=== PATIENT | female | born 1985 | race Caucasian/White ===

== ENCOUNTER 2016-12-11 09:52 | Inpatient (IN) | payer OTHER, SELFPAY ==
[~2016-12-11] VITALS: Ht 157.5 cm; Wt 64.0 kg
[2016-12-11] VITALS (11 sets, daily range): BP systolic 119–159; BP diastolic 73–98
[2016-12-11] MEDS: PRENATAL VITAMINS CHEWABLE TABLET PO SCH (09:00)
[~2016-12-11 09:52] MED LIST: *ANUSOI TOP; ACET50TA PO; COLA100C2 OR; IBUP600T OR; IBUP60TA PO; MILKSUS OR; NO HOME MEDS; PRENTAB8 PO; TYLE500T53 OR
[2016-12-11] MEDS ORDERED: OXYTOCIN INJ 10 UNITS/ML VIAL (J2590) IM ONE (11:15)
[2016-12-11 11:18] LABS: CORD GAS O2 SAT V 68.7 %; CORD GAS PCO2 V 26.7 mmHg; CORD GAS PH V 7.471 UNITS; CORD GAS PO2 V 25.5 mmHg; CORD GAS SBC V 21.3 MEQ/L; CORD GAS TCO2 V 19.9 MEQ/L
[2016-12-11 11:21] LABS: CORD GAS ABE A -2.7; CORD GAS HCO3 A 21.2 MEQ/L; CORD GAS O2 SAT A 40.7 %; CORD GAS PCO2 A 34.3 mmHg; CORD GAS PH A 7.409 UNITS; CORD GAS PO2 A 16.8 mmHg; CORD GAS TCO2 A 22.3 MEQ/L
[2016-12-11] MEDS ORDERED: OXYTOCIN DRIP 30 UNITS in APPROPRIATE DILUENT 1 EA IV SCH (11:50)
--- NOTE | 2016-12-11 11:52 | HPE ---
DATE OF ADMISSION: 12/11/2016 Anne is a 31-year-old 6, para 4-0-1-4 with unknown gestational age at this time. She has received no care during this . She presents to labor and delivery with report of contractions that started at approximately 0600 hours. She denies vaginal bleeding, leakage of fluid, fetus has been active and she claims that she found out she was in September and has had no care and was told that she should be about 20 weeks gestation at this time. History is significant for know illicit drug use with last . OBSTETRICAL HISTORY: Spontaneous times one. October 2004 at 41 weeks gestation she had a spontaneous vaginal delivery for a 7 pound 15 ounce female. September 2007 at 40 weeks gestation she had spontaneous vaginal delivery for an 8 pound 10 ounce female. January 2012 at 41 weeks she had a spontaneous vaginal delivery for 8 pound 12 ounce male. December of 2015 at 39 weeks she had spontaneous vaginal delivery for a 6 pound 13 ounce female. OBSTETRICAL LABS: None available at this time. PAST MEDICAL HISTORY: Reported as negative. SURGERIES: None. FAMILY HISTORY: Breast cancer. SOCIAL HISTORY: The patient is single. She reports that the father of baby is in her life. She reports smoking one to two cigarettes a day. Denies alcohol use. Reports drug use with recent use in July and in September of this year, cocaine and marijuana. Denies any history of any sexually transmitted infections and denies history of abuse. ALLERGIES: No known drug allergies. CURRENT MEDICATIONS: Include vitamins. The patient in her last reportedly used illicit drugs and does not have custody of that child. She does report having custody of her other three children. OBJECTIVE: Blood pressure 119/75, pulse 72, no temperature recorded. Her pupils are dilated. She is writhing around in the bed and appears significantly uncomfortable. Her abdomen appears gravid, much greater than 20 weeks gestation. A fundal height measurement was 41 cm. Bedside ultrasound was performed to confirm cephalic presentation. heart rate minimal recording due to the patient's inability to cope with her contractions. heart rate is 130 with moderate variability. There is a one noted acceleration and no decelerations observed. She appears to be marc about every 3 minutes. The abdomen is gravid, cephalic presentation. Estimated weight approximately 7 pounds. Sterile vaginal exam fully dilated, bulging bag of water. ASSESSMENT: Intrauterine of unknown gestational age. Fundal height 41 cm, appears to be a term , second stage. PLAN: Admit the patient to labor delivery. Saline lock if able to obtain. Anticipate a spontaneous vaginal delivery. There will be a patient and family services (PFS) consult made. NUBIA
[2016-12-11] MEDS ORDERED: OXYTOCIN 30 UNITS IN 0.9% NaCl 500ML IV BAG (J2590) As Ordered ONE (11:53)
[2016-12-11] MEDS ORDERED: ANUSOL HC CREAM 30GM TOP PRN (12:00)
[2016-12-11] MEDS ORDERED: DIBUCAINE 1% OINTMENT 30GM TOP PRN (12:00)
[2016-12-11] MEDS ORDERED: DOCUSATE SODIUM 100 MG CAP PO PRN (12:00)
[2016-12-11] MEDS ORDERED: MEASLES,MUMPS,RUBELLA VACCINE INJ (MMR-II) (90707) SC SCH (12:00)
[2016-12-11] MEDS ORDERED: METHYLERGONOVINE MALEATE 0.2 MG TAB PO PRN (12:00)
[2016-12-11] MEDS ORDERED: RHOGAM 300 MCG (1500 IU) INJ (J2790) IM SCH (12:00)
[2016-12-11 12:02] LABS: BASO # 0.1 K/mm3 (0.0-0.2); BASO % 0.8 % (0.0-1.0); EOS # 0.1 K/mm3 (0.0-0.50); EOS % 0.7 % (0.0-3.0); LARGE UNSTAINED CELL # 0.1 K/mm3 (0.0-0.4); LYMPH # 1.2 K/mm3 (1.5-4.5); LYMPH % 8.8 % (24.0-44.0); MEAN CORPUSCULAR HEMOGLOBIN 29.5 pg (27.0-33.0); MEAN CORPUSCULAR VOLUME 89.5 fl (80.0-96.0); MONO # 0.6 K/mm3 (0.0-0.8); MONO % 4.2 % (0.0-5.0); NEUTROPHILS # 11.2 K/mm3 (1.8-7.7); NEUTROPHILS % 84.6 % (36.0-66.0); PLATELET COUNT, AUTOMATED 273 k/mm3 (150-450); WHITE BLOOD COUNT 13.2 K/mm3 (4.0-10.0)
[2016-12-11] MEDS: IBUPROFEN 800 MG TAB PO PRN ×2 (12:17→20:05)
[2016-12-11 12:21] LABS: ALT/SGPT 9 U/L (12-78); AST/SGOT 11 U/L (15-37); BILIRUBIN,TOTAL 0.2 MG/DL (0.2-1.0); CREATININE FOR GFR 0.56 MG/DL (0.55-1.02); GLOMERULAR FILTRATION RATE > 60.0 (>60); URIC ACID 4.3 MG/DL (2.6-6.0)
--- NOTE | 2016-12-11 12:38 | DN ---
DATE OF DELIVERY: 12/11/2016 Anne is a 31-year-old, 6, para 5-0-1-5 now, who was admitted to labor and delivery in second stage labor. She progressed to full dilation at 10:24 a.m. She had a spontaneous rupture of membranes for thick meconium-stained fluid at 10:26. She pushed to a normal spontaneous vaginal delivery of a live male infant in occipitoanterior (OA) position, restitution to left occipitotransverse (LOT) position at 10:29. There was a cord noted around the left thigh and abdomen of the fetus that was reduced manually after delivery. The 's mouth and nares were bulb suctioned. He was crying and vigorous. Cord was clamped times two and cut by myself. The was taken to the warmer for evaluation by nursing staff and Dr. Klein did enter the room very quickly after delivery for evaluation. A spontaneous expulsion of a placenta intact with three-vessel cord by Aranda mechanism was at 10:40. Noted to be thick meconium stained on the membranes. The trailing membranes were teased out with a ring forceps. Uterine hemostasis achieved with intramuscular (IM) Pitocin 10 units and uterine fundal massage. Estimated blood loss was 300 mL. Perineum and vagina were inspected and noted to be intact. The male weighed 3200 grams, 7 pounds 4 ounces, scores 9 and 9. Mother plans to bottle feed. She is going to name her son, Mauricio. At the close of delivery, lap counts, needle counts, and instrument counts were correct and verified. [facility]
[2016-12-11] MEDS ORDERED: AMPICILLIN SOD/SULBACTAM SOD 3 GM in D5W MINI-BAG PLUS 100 ML IV ONE (13:15)
[2016-12-12] MEDS: IBUPROFEN 800 MG TAB PO PRN ×3 (03:06→20:57)
[2016-12-12 06:09] VITALS: BP 130/80
[2016-12-12] MEDS: PRENATAL VITAMINS CHEWABLE TABLET PO SCH (09:53)
[2016-12-12 18:00] VITALS: BP 126/68
[2016-12-12 18:58] LABS: CONTROL LINE INT CTR LINE PRESENT; HIV SCRN NEGATIVE (NEGATIVE); HIV SCRN1 NEGATIVE (NEGATIVE)
[2016-12-13] MEDS ORDERED: medroxyPROGESTERone ACET IM SUSP 150 MG/ML VIAL (J1050) IM SCH (05:45)
[2016-12-13 06:10] VITALS: BP 127/84
[2016-12-13] MEDS: PRENATAL VITAMINS CHEWABLE TABLET PO SCH (07:41)
[2016-12-13 18:25] VITALS: BP 147/96
[2016-12-13] MEDS: IBUPROFEN 800 MG TAB PO PRN (18:32)
[2016-12-13] MEDS ORDERED: IBUP-1114 PO (18:44)
[2016-12-13] MEDS ORDERED: PRENTAB9 PO (18:44)
[2016-12-18 19:06] LABS: GC Benzoylecgon 2520 ng/mL (Cutoff=150); GC Carboxy THC 49 ng/mL (Cutoff=10)
== END 2016-12-13 18:54 | disposition home or self-care (01) | DRG 541 ==
LOC: M LDO 09:52 → M LDI 10:26 → M OBS 14:33
PROVIDERS: ADMIT Advanced Practice Midwife; ATTEND Advanced Practice Midwife
PROC: 10E0XZZ Delivery of Products of Conception, External Approach (ICD-10-PCS; principal; 2016-12-11)
PROC: 10D17ZZ Extraction of Products of Conception, Retained, Via Natural or Artificial Opening (ICD-10-PCS; 2016-12-11)
DX: O99.334 Smoking (tobacco) complicating childbirth (principal); F17.210 Nicotine dependence, cigarettes, uncomplicated; Z3A.00 Weeks of gestation of pregnancy not specified; O77.0 Labor and delivery complicated by meconium in amniotic fluid; O69.82X0 Labor and delivery complicated by other cord entanglement, without compression, not applicable or unspecified; O73.1 Retained portions of placenta and membranes, without hemorrhage; Z37.0 Single live birth

== ENCOUNTER → 2016-12-21 | Outpatient (CLI) | payer SELFPAY ==
[~2016-12-21] MED LIST changes: +IBUP-1114 PO; +PRENTAB9 PO
== END ==
LOC: M OUTALCOH 07:47
PROVIDERS: ATTEND Psychiatry & Neurology Psychiatry
DX: F12.20 Cannabis dependence, uncomplicated (principal); F14.10 Cocaine abuse, uncomplicated; F10.10 Alcohol abuse, uncomplicated

== ENCOUNTER 2016-12-28 14:22 | Outpatient (RCR) | payer SELFPAY | END 2017-01-03 | LOC: M OUTALCOH 14:22 | PROVIDERS: ATTEND Psychiatry & Neurology Psychiatry | DX: F12.20 Cannabis dependence, uncomplicated (principal); F14.10 Cocaine abuse, uncomplicated; F10.10 Alcohol abuse, uncomplicated; F17.200 Nicotine dependence, unspecified, uncomplicated ==

== ENCOUNTER → 2017-02-03 | Outpatient (RCR) | payer SELFPAY | LOC: M OUTALCOH 01-04 16:00 | PROVIDERS: ATTEND Psychiatry & Neurology Psychiatry | DX: F12.20 Cannabis dependence, uncomplicated (principal); F14.10 Cocaine abuse, uncomplicated; F10.10 Alcohol abuse, uncomplicated; F17.200 Nicotine dependence, unspecified, uncomplicated ==

== ENCOUNTER 2017-03-01 16:00 | Outpatient (RCR) | payer SELFPAY | END 2017-03-05 | LOC: M OUTALCOH 16:00 | PROVIDERS: ATTEND Psychiatry & Neurology Psychiatry | DX: F10.10 Alcohol abuse, uncomplicated (principal); F12.20 Cannabis dependence, uncomplicated; F14.10 Cocaine abuse, uncomplicated; F17.200 Nicotine dependence, unspecified, uncomplicated ==

== ENCOUNTER 2017-10-23 13:16 | Inpatient (IN) | payer SELFPAY, MEDICAID, OTHER ==
[2017-10-23 14:18] LABS: AMORPHOUS SEDIMENT RFX SMALL (NEGATIVE); KETONE, URINE AUTO RFX NEGATIVE (NEGATIVE); MUCUS, URINE RFX SMALL (NEGATIVE); RBC, URINE AUTO RFX 11 /HPF (0-3); SPECIFIC GRAVITY UR AUTO RFX 1.021 (1.002-1.035); SQUAM EPITHELIAL CELL UR AURFX 0 /HPF (0-6); TRANSITIONAL EPITHELIAL AU RFX 1 /HPF
[2017-10-23 14:19] LABS: LEUKOCYTE ESTERASE UR AUTO RFX 3+ (NEGATIVE); NITRITE, URINE AUTO RFX POSITIVE (NEGATIVE); WBC, URINE AUTO RFX TNTC /HPF (0-3)
[2017-10-23 15:12] LABS: CONTROL LINE UCG INT CTR LINE PRESENT; URINE PREG TEST NEGATIVE (NEGATIVE)
[2017-10-23 15:37] LABS: BASO # 0.1 10^3/uL (0.0-0.2); BASO % 0.4 % (0.0-1.0); HEMOGLOBIN 12.8 g/dl (12.0-15.5); IMMATURE GRANULOCYTE % 0.7 % (0-3.0); LYMPH % 3.9 % (24.0-44.0); MEAN CORPUSCULAR HEMOGLOBIN 28.6 pg (27.0-33.0); MEAN CORPUSCULAR VOLUME 89.3 fl (80.0-96.0); MONO # 1.8 10^3/uL (0.0-0.8); MONO % 7.2 % (0.0-5.0); NEUTROPHILS # 21.5 10^3/uL (1.8-7.7); NEUTROPHILS % 87.8 % (36.0-66.0); PLATELET COUNT, AUTOMATED 306 10^3/uL (150-450); RED BLOOD COUNT 4.48 10^6/uL (4.00-5.40); RED CELL DISTRIBUTION WIDTH 15.1 % (11.5-14.5); WHITE BLOOD COUNT 24.5 10^3/uL (4.0-10.0)
[2017-10-23] MEDS ORDERED: ISOVUE-370 76% 100ML VIAL (Q9967) As Ordered (15:50)
[2017-10-23 15:53] LABS: ALBUMIN 3.7 GM/DL (3.2-5.2); ALBUMIN/GLOBULIN RATIO 0.76 (1.00-1.93); ALKALINE PHOSPHATASE 119 U/L (45-117); ALT/SGPT 118 U/L (12-78); ANION GAP 8 MEQ/L (8-16); AST/SGOT 79 U/L (7-37); BILIRUBIN,DIRECT 0.2 MG/DL (0.0-0.2); BILIRUBIN,TOTAL 0.6 MG/DL (0.2-1.0); BLOOD UREA NITROGEN 15 MG/DL (7-18); CALCIUM LEVEL 9.4 MG/DL (8.5-10.1); CARBON DIOXIDE LEVEL 27 MEQ/L (21-32); CHLORIDE LEVEL 103 MEQ/L (98-107); CREATININE FOR GFR 0.82 MG/DL (0.55-1.30); GLOMERULAR FILTRATION RATE > 60.0 (>60); GLUCOSE, FASTING 90 MG/DL (70-100); LIPASE 77 U/L (73-393); POTASSIUM SERUM 4.2 MEQ/L (3.5-5.1); SODIUM LEVEL 138 MEQ/L (136-145); TOTAL PROTEIN 8.6 GM/DL (6.4-8.2)
[2017-10-23] MEDS: NS 1,000 ML IV ×2 (15:56→20:45)
[2017-10-23] MEDS: ONDANSETRON 4MG/2ML VIAL (J2405) IV (15:57)
[2017-10-23] MEDS: MORPHINE 4 MG/ML 1ML VIAL/SYRINGE (J2270) IV ×2 (15:57→20:44)
[2017-10-23 16:11] LABS: LACTIC ACID SEPSIS PROTOCOL 3.9 MMOL/L (0.4-2.0)
[2017-10-23] MEDS: cefTRIAXone SOD 1 GM in D5W MINI-BAG PLUS 50 ML IV (17:22)
[2017-10-23] MEDS: NS 500 ML in APPROPRIATE DILUENT 1 EA IV (17:22)
[2017-10-23] MEDS: ACETAMINOPHEN TAB 650MG DOSE (2X325MG) PO ×2 (17:45→18:42)
[2017-10-23] MEDS ORDERED: ONDANSETRON 4MG/2ML VIAL (J2405) IV (18:30)
[2017-10-23] MEDS ORDERED: ACETAMINOPHEN TAB 650MG DOSE (2X325MG) PO (18:30)
[2017-10-23] MEDS: ENOXAPARIN 30 MG/0.3 ML SYR (J1650) SC (20:44)
[2017-10-23] MEDS: PERCOCET 5MG/325MG TAB PO (23:49)
[2017-10-24] MEDS: NS 1,000 ML IV (06:04)
[2017-10-24] MEDS: MORPHINE 4 MG/ML 1ML VIAL/SYRINGE (J2270) IV (06:05)
[2017-10-24 06:28] LABS: HEMATOCRIT 30.2 % (36.0-47.0); HEMOGLOBIN 9.8 g/dl (12.0-15.5); MEAN CORPUSCULAR HEMOGLOBIN 28.9 pg (27.0-33.0); MEAN CORPUSCULAR HGB CONC 32.5 g/dl (32.0-36.5); MEAN CORPUSCULAR VOLUME 89.1 fl (80.0-96.0); PLATELET COUNT, AUTOMATED 243 10^3/uL (150-450); RED BLOOD COUNT 3.39 10^6/uL (4.00-5.40); RED CELL DISTRIBUTION WIDTH 15.2 % (11.5-14.5); WHITE BLOOD COUNT 16.7 10^3/uL (4.0-10.0)
[2017-10-24 06:51] LABS: ALBUMIN 2.6 GM/DL (3.2-5.2); ALKALINE PHOSPHATASE 117 U/L (45-117); ALT/SGPT 73 U/L (12-78); ANION GAP 5 MEQ/L (8-16); AST/SGOT 45 U/L (7-37); BILIRUBIN,TOTAL 0.3 MG/DL (0.2-1.0); BLOOD UREA NITROGEN 11 MG/DL (7-18); CARBON DIOXIDE LEVEL 26 MEQ/L (21-32); CHLORIDE LEVEL 108 MEQ/L (98-107); CREATININE FOR GFR 0.71 MG/DL (0.55-1.30); GLOMERULAR FILTRATION RATE > 60.0 (>60); GLUCOSE, FASTING 83 MG/DL (70-100); MAGNESIUM LEVEL 2.3 MG/DL (1.8-2.4); POTASSIUM SERUM 4.3 MEQ/L (3.5-5.1); SODIUM LEVEL 139 MEQ/L (136-145)
[2017-10-24 07:08] LABS: ALBUMIN/GLOBULIN RATIO 0.68 (1.00-1.93)
[2017-10-24 07:17] LABS: CALCIUM LEVEL 8.1 MG/DL (8.5-10.1)
[2017-10-24 07:18] LABS: TOTAL PROTEIN 6.4 GM/DL (6.4-8.2)
[2017-10-24] MEDS: PERCOCET 5MG/325MG TAB PO ×2 (07:41→20:45)
[2017-10-24 09:57] LABS: HIV 1&2 SCREEN CENTAUR NEGATIVE (NEGATIVE)
[2017-10-24 10:09] LABS: HEPATITIS C VIRUS ABY INDEX > 11.0 INDEX (<0.8)
[2017-10-24] MEDS: KETOROLAC 30 MG/ML VIAL (J1885) IV ×3 (10:32→22:37)
[2017-10-24] MEDS: traMADol 50 MG TAB PO ×2 (10:33→18:52)
[2017-10-24] MEDS: LIDOCAINE 5% OINT 30 GM TOP ×2 (11:45→20:45)
[2017-10-24] MEDS: cefTRIAXone SOD 1 GM in D5W MINI-BAG PLUS 50 ML IV (16:52)
[2017-10-24] MEDS: ENOXAPARIN 30 MG/0.3 ML SYR (J1650) SC (20:45)
[2017-10-25] MEDS: KETOROLAC 30 MG/ML VIAL (J1885) IV ×4 (05:48→22:20)
[2017-10-25 06:46] LABS: HEMOGLOBIN 9.7 g/dl (12.0-15.5); MEAN CORPUSCULAR HEMOGLOBIN 28.5 pg (27.0-33.0); MEAN CORPUSCULAR HGB CONC 31.3 g/dl (32.0-36.5); MEAN CORPUSCULAR VOLUME 91.2 fl (80.0-96.0); PLATELET COUNT, AUTOMATED 209 10^3/uL (150-450); RED CELL DISTRIBUTION WIDTH 15.1 % (11.5-14.5); WHITE BLOOD COUNT 9.3 10^3/uL (4.0-10.0)
[2017-10-25 07:02] LABS: ALBUMIN 2.4 GM/DL (3.2-5.2); ALBUMIN/GLOBULIN RATIO 0.73 (1.00-1.93); ALKALINE PHOSPHATASE 131 U/L (45-117); ALT/SGPT 63 U/L (12-78); ANION GAP 6 MEQ/L (8-16); AST/SGOT 47 U/L (7-37); BILIRUBIN,TOTAL 0.2 MG/DL (0.2-1.0); BLOOD UREA NITROGEN 16 MG/DL (7-18); CALCIUM LEVEL 7.8 MG/DL (8.5-10.1); CARBON DIOXIDE LEVEL 26 MEQ/L (21-32); CHLORIDE LEVEL 111 MEQ/L (98-107); CREATININE FOR GFR 0.67 MG/DL (0.55-1.30); GLOMERULAR FILTRATION RATE > 60.0 (>60); GLUCOSE, FASTING 81 MG/DL (70-100); MAGNESIUM LEVEL 2.2 MG/DL (1.8-2.4); POTASSIUM SERUM 4.6 MEQ/L (3.5-5.1); SODIUM LEVEL 143 MEQ/L (136-145); TOTAL PROTEIN 5.7 GM/DL (6.4-8.2)
[2017-10-25] MEDS: LIDOCAINE 5% OINT 30 GM TOP ×2 (10:52→21:11)
[2017-10-25] MEDS: MOM 30ML SUSPENSION UDC PO (13:42)
[2017-10-25] MEDS: cefTRIAXone SOD 1 GM in D5W MINI-BAG PLUS 50 ML IV (17:47)
[2017-10-25] MEDS: ENOXAPARIN 30 MG/0.3 ML SYR (J1650) SC (21:12)
[2017-10-26 00:06] LABS: HBVCOREDIFF1 Negative (Negative); HBVCOREDIFF2 Negative (Negative); HEPATITIS BE ANTIBODY Negative (Negative); HEPATITIS BE ANTIGEN Negative (Negative)
[2017-10-26] MEDS: KETOROLAC 30 MG/ML VIAL (J1885) IV (05:44)
[2017-10-26 06:42] LABS: HEMATOCRIT 31.4 % (36.0-47.0); MEAN CORPUSCULAR HEMOGLOBIN 28.4 pg (27.0-33.0); MEAN CORPUSCULAR HGB CONC 31.8 g/dl (32.0-36.5); MEAN CORPUSCULAR VOLUME 89.2 fl (80.0-96.0); PLATELET COUNT, AUTOMATED 280 10^3/uL (150-450); RED BLOOD COUNT 3.52 10^6/uL (4.00-5.40); WHITE BLOOD COUNT 6.4 10^3/uL (4.0-10.0)
[2017-10-26 07:18] LABS: ALBUMIN 2.4 GM/DL (3.2-5.2); ALKALINE PHOSPHATASE 132 U/L (45-117); ALT/SGPT 56 U/L (12-78); ANION GAP 5 MEQ/L (8-16); AST/SGOT 44 U/L (7-37); BILIRUBIN,TOTAL 0.2 MG/DL (0.2-1.0); BLOOD UREA NITROGEN 14 MG/DL (7-18); CALCIUM LEVEL 8.3 MG/DL (8.5-10.1); CARBON DIOXIDE LEVEL 29 MEQ/L (21-32); CHLORIDE LEVEL 110 MEQ/L (98-107); CREATININE FOR GFR 0.57 MG/DL (0.55-1.30); GLOMERULAR FILTRATION RATE > 60.0 (>60); GLUCOSE, FASTING 81 MG/DL (70-100); MAGNESIUM LEVEL 2.2 MG/DL (1.8-2.4); POTASSIUM SERUM 4.2 MEQ/L (3.5-5.1); SODIUM LEVEL 144 MEQ/L (136-145); TOTAL PROTEIN 6.4 GM/DL (6.4-8.2)
[2017-10-26] MEDS: LIDOCAINE 5% OINT 30 GM TOP (09:20)
[2017-10-26] MEDS: cefTRIAXone SOD 1 GM in D5W MINI-BAG PLUS 50 ML IV (09:20)
[2017-10-27 00:10] LABS: HBV HBV DNA not detected IU/mL (.)
[2017-10-28 00:09] LABS: HCV RNA NAA QUALITATIVE Positive (Negative)
== END 2017-10-26 10:45 | disposition home or self-care (01) | DRG 720 ==
LOC: M ED 13:16 → M ED INP 18:28 → M MS5PR 20:32
DX: A41.9 Sepsis, unspecified organism (principal); E87.2 Acidosis; N10 Acute pyelonephritis; B19.20 Unspecified viral hepatitis C without hepatic coma; B96.20 Unspecified Escherichia coli [E. coli] as the cause of diseases classified elsewhere; F41.9 Anxiety disorder, unspecified; F19.90 Other psychoactive substance use, unspecified, uncomplicated; R94.5 Abnormal results of liver function studies; F17.200 Nicotine dependence, unspecified, uncomplicated; F32.9 Major depressive disorder, single episode, unspecified; Z79.899 Other long term (current) drug therapy

== ENCOUNTER → 2021-11-18 | Outpatient (CLI) | payer OTHER, SELFPAY ==
[~2021-11-18] MED LIST changes: -ACET50TA PO; +IBUP600T42 PO; -IBUP60TA PO; +LEVO750T13 PO; +MAPA500T2 PO
== END ==
LOC: M RAD 12:44
PROVIDERS: ATTEND Physician Assistant Medical
DX: Z32.01 Encounter for pregnancy test, result positive (principal)

== ENCOUNTER 2022-03-05 11:21 | Inpatient (IN) | payer SELFPAY ==
[2022-03-05] VITALS (26 sets, daily range): BP systolic 104–144; BP diastolic 57–95
[~2022-03-05] VITALS: Ht 157.5 cm; Wt 61.4 kg
[~2022-03-05 11:21] MED LIST changes: +LEVO1TAB40 PO; -LEVO750T13 PO
[2022-03-05] MEDS ORDERED: AMPICILLIN SOD 2 GM in D5W MINI-BAG PLUS 100 ML IV STA (11:28)
[2022-03-05] MEDS ORDERED: LACTATED RINGER'S 1000 ML IV STA (11:28)
[2022-03-05] MEDS ORDERED: LR 1,000 ML IV SCH (11:30)
[2022-03-05] MEDS ORDERED: PREN1CHW6 PO (11:40)
[2022-03-05] MEDS ORDERED: METH10CO PO (11:42)
[2022-03-05] MEDS ORDERED: HOME MED LIST COMPLETE! XX SCH (11:45)
[2022-03-05 12:33] LABS: BASO # 0.1 10^3/uL (0.0-0.2); BASO % 0.7 % (0.0-1.0); EOS # 0.1 10^3/uL (0.0-0.5); EOS % 1.1 % (0.0-3.0); HEMATOCRIT 29.9 % (36.0-47.0); HEMOGLOBIN 9.6 g/dl (12.0-15.5); LYMPH # 2.1 10^3/uL (1.5-5.0); LYMPH % 16.9 % (24.0-44.0); MEAN CORPUSCULAR HGB CONC 32.1 g/dl (32.0-36.5); MEAN CORPUSCULAR VOLUME 87.2 fl (80.0-96.0); MONO # 0.8 10^3/uL (0.0-0.8); MONO % 6.3 % (2.0-8.0); NEUTROPHILS # 9.3 10^3/uL (1.5-8.5); NEUTROPHILS % 73.3 % (36.0-66.0); PLATELET COUNT, AUTOMATED 264 10^3/uL (150-450); RED BLOOD COUNT 3.43 10^6/uL (4.00-5.40); WHITE BLOOD COUNT 12.7 10^3/uL (4.0-10.0)
[2022-03-05] MEDS: METHADONE 10MG TAB PO SCH (13:04)
[2022-03-05] MEDS: METHADONE 5MG TAB PO SCH (13:04)
[2022-03-05 13:08] LABS: AMPHETAMINES URINE REFLEX NEGATIVE (NEGATIVE); BARBITURATES URINE REFLEX NEGATIVE (NEGATIVE); BENZODIAZEPINES URINE REFLEX NEGATIVE (NEGATIVE); CANNABINOIDS URINE REFLEX NEGATIVE (NEGATIVE); COCAINE METABOLITE URINE REFLE NEGATIVE (NEGATIVE); PHENCYCLIDINE URINE REFLEX NEGATIVE (NEGATIVE)
[2022-03-05 13:20] LABS: METHADONE URINE REFLEX PENDING CONFIRMATION (NEGATIVE); OPIATES URINE REFLEX PENDING CONFIRMATION (NEGATIVE)
[2022-03-05] MEDS ORDERED: LR 500 ML IV PRN (14:40)
[2022-03-05] MEDS ORDERED: diphenhydrAMINE 50MG/ML VIAL (J1200) IV PRN (14:40)
[2022-03-05] MEDS ORDERED: ePHEDrine SULFATE 25 MG/5 ML(5MG/ML) SYRINGE IVP PRN (14:40)
[2022-03-05] MEDS ORDERED: NALOXONE INJ 0.4MG/1ML VIAL (J2310 PER 1MG) IV PRN (14:40)
[2022-03-05] MEDS ORDERED: ONDANSETRON 4MG 2ML VIAL IV PRN (14:40)
[2022-03-05] MEDS ORDERED: FENTANYL/ROPIVACAINE/NACL BAG 100 ML EPIDURAL SCH (14:40)
[2022-03-05] MEDS ORDERED: EPIDURAL/PCA KEYS XX PRN (14:40)
[2022-03-05 14:49] LABS: HIV 1&2 SCREEN CENTAUR NEGATIVE (NEGATIVE)
[2022-03-05] MEDS ORDERED: AMPICILLIN SOD 1 GM in D5W MINI-BAG PLUS 50 ML IV SCH (16:00)
[2022-03-05] MEDS ORDERED: OXYTOCIN DRIP 30 UNITS in IV 1 EA IV SCH ×2 (19:45→20:45)
[2022-03-05 20:42] LABS: CORD GAS ABE A -0.9; CORD GAS ABE V -0.4; CORD GAS HCO3 A 26.1 MEQ/L; CORD GAS HCO3 V 24.2 MEQ/L; CORD GAS O2 SAT A 23.3 %; CORD GAS O2 SAT V 73.5 %; CORD GAS PCO2 A 52.7 mmHg; CORD GAS PCO2 V 39.6 mmHg; CORD GAS PH A 7.312 UNITS; CORD GAS PH V 7.404 UNITS; CORD GAS PO2 A 12.1 mmHg; CORD GAS PO2 V 26.9 mmHg; CORD GAS SBC V 23.6 MEQ/L; CORD GAS TCO2 A 27.7 MEQ/L; CORD GAS TCO2 V 25.4 MEQ/L
[2022-03-05] MEDS ORDERED: IBUPROFEN 600MG TAB PO PRN (20:45)
[2022-03-05] MEDS ORDERED: RHOGAM 300 MCG (1500 IU) INJ (J2790) IM SCH (20:45)
[2022-03-05] MEDS ORDERED: ACETAMINOPHEN TAB 650MG DOSE (2X325MG) PO PRN (20:45)
[2022-03-05] MEDS ORDERED: DOCUSATE SODIUM 100MG CAPSULE PO PRN (20:45)
[2022-03-05] MEDS ORDERED: DIBUCAINE 1% OINTMENT 30GM TOP PRN (20:45)
[2022-03-05] MEDS ORDERED: METHYLERGONOVINE MALEATE 0.2 MG TAB PO PRN (20:45)
[2022-03-06] MEDS: IBUPROFEN 800 MG TAB PO PRN ×2 (00:53→10:48)
[2022-03-06 06:00] VITALS: BP 115/60
[2022-03-06] MEDS ORDERED: PRENATAL VITAMINS CHEWABLE TABLET PO SCH (09:00)
[2022-03-06] MEDS: METHADONE 10MG TAB PO SCH (10:15)
[2022-03-06] MEDS: METHADONE 5MG TAB PO SCH (10:15)
[2022-03-06] MEDS: ACETAMINOPHEN 500 MG TAB PO PRN ×2 (10:15→18:35)
[2022-03-06 18:00] VITALS: BP 147/76
[2022-03-07] MEDS ORDERED: MEASLES,MUMPS,RUBELLA VACCINE INJ (MMR-II) (90707) SC.IMMUN ONE (09:00)
== END 2022-03-06 19:22 | disposition left against medical advice (07) | DRG 560 ==
LOC: M LDO 11:21 → M LDI 11:43 → M OBS 23:11
PROVIDERS: ADMIT Obstetrics & Gynecology; ATTEND Obstetrics & Gynecology
PROC: 10E0XZZ Delivery of Products of Conception, External Approach (ICD-10-PCS; principal; 2022-03-05)
PROC: 10907ZC Drainage of Amniotic Fluid, Therapeutic from Products of Conception, Via Natural or Artificial Opening (ICD-10-PCS; 2022-03-05)
DX: O99.324 Drug use complicating childbirth (principal); O99.344 Other mental disorders complicating childbirth; F32.A Depression, unspecified; F14.10 Cocaine abuse, uncomplicated; F12.10 Cannabis abuse, uncomplicated; F41.9 Anxiety disorder, unspecified; O99.334 Smoking (tobacco) complicating childbirth; F17.200 Nicotine dependence, unspecified, uncomplicated; O99.824 Streptococcus B carrier state complicating childbirth; Z37.0 Single live birth; Z91.199 Patient's noncompliance with other medical treatment and regimen due to unspecified reason

== ENCOUNTER → 2024-07-26 | Outpatient (CLI) | payer MEDICAID, OTHER ==
[~2024-07-26] MED LIST changes: +METH10CO PO; +PREN1CHW6 PO
[2024-07-26 14:06] LABS: HEMATOCRIT 40.5 % (36.0-47.0); MEAN CORPUSCULAR HEMOGLOBIN 28.1 pg (27.0-33.0); MEAN CORPUSCULAR HGB CONC 32.1 g/dl (32.0-36.5); MEAN CORPUSCULAR VOLUME 87.7 fl (80.0-96.0); PLATELET COUNT, AUTOMATED 241 10^3/uL (150-450); RED BLOOD COUNT 4.62 10^6/uL (4.00-5.40); WHITE BLOOD COUNT 5.2 10^3/uL (4.0-10.0)
[2024-07-26 14:30] LABS: HCG, SERUM QUALITATIVE NEGATIVE (NEGATIVE)
[2024-07-26 14:31] LABS: ALBUMIN 3.7 G/DL (3.2-5.2); ALKALINE PHOSPHATASE 93 U/L (35-104); ALT/SGPT 162 U/L (7.0-40); AST/SGOT 174 U/L (<34); BILIRUBIN,TOTAL 0.4 MG/DL (0.3-1.2); BLOOD UREA NITROGEN 12 MG/DL (9-23); CALCIUM LEVEL 9.5 MG/DL (8.5-10.1); CARBON DIOXIDE LEVEL 29 MMOL/L (20-31); CHLORIDE LEVEL 103 MMOL/L (98-107); CREATININE FOR GFR 0.75 MG/DL (0.55-1.30); GLOMERULAR FILTRATION RATE > 60.0 (>60); GLUCOSE, FASTING 82 MG/DL (60-100); POTASSIUM SERUM 4.4 MMOL/L (3.5-5.1); SODIUM LEVEL 141 MMOL/L (136-145); TOTAL PROTEIN 7.9 G/DL (5.7-8.2)
[2024-07-26 14:40] LABS: HEPATITIS B SURFACE ANTIGEN NEGATIVE (NEGATIVE)
[2024-07-26 14:53] LABS: HIV 1&2 SCREEN NEGATIVE (NEGATIVE)
[2024-07-26 15:14] LABS: HEPATITIS C VIRUS ABY INDEX > 11.00 INDEX (<0.8)
[2024-07-26 15:36] LABS: GC DNA AMPLIFICATION NEGATIVE (NEGATIVE)
== END ==
LOC: M LAB 11:34
PROVIDERS: ATTEND Family Medicine
DX: F11.20 Opioid dependence, uncomplicated (principal)
CPT/HCPCS: 36415; 80053; 84703; 85027; 86780; 86803; 87340; 87389; 87522; 87810; 87850; G0480